=== PATIENT | male | born 1950 | race Caucasian/White ===

== ENCOUNTER 2019-12-05 16:51 | IRF | payer MEDICARE, SELFPAY ==
--- NOTE | ~2019-12-05 | US_ITS ---
EXAMINATION: US venous doppler LE RT EXAM DATE: 12/08/2019 11:03 INDICATION: Right hip fracture, right leg pain. TECHNIQUE: Multiple grayscale, color flow and Doppler images of the right lower extremity deep venous system were obtained and reviewed. There is no prior study for comparison. FINDINGS: The right common femoral, femoral and profunda veins demonstrate normal color flow, respira tory variation, augmentation and compressibility. Compressibility, color flow confirmed within the r ight popliteal, posterior tibial, peroneal, and greater saphenous veins. IMPRESSION: 1. No right lower extremity deep venous thrombosis. Reviewed, dictated and finalized at location A.
[2019-12-05 16:50] VITALS: BP 158/55; PULSE 63; RESP 18; TEMP 37.2; O2SAT 99; BMI 26.3
--- NOTE | 2019-12-05 18:16 | ADMGEN ---
This patient, Elliot Shipman, was admitted to [facility] Room 220-01. Patient/family oriented to hospital policies and general routines including ID bracelet, bed and alarms, visiting hours, pain management, procedures, bathroom and other care routines, personal items, smoking policy, room service/diet, and visiting hours. Valuables list has been completed. Information on how to activate the Rapid Response Team has been discussed. Patient/Family are encouraged to report perceived risks to care and to ask questions if they do not understand what they are told or what they should do.
[2019-12-05 22:00] VITALS: BP 125/54; PULSE 82; RESP 18; TEMP 36.2; O2SAT 97
[2019-12-06 04:52] LABS: Basophils Percent Auto 0.5 % (0.2-1.2); Eosinophils Absolute Auto 0.3 K/mm3 (0-0.3); Eosinophils Percent Auto 4.1 % (0-4.4); Hematocrit 37.5 % (42.0-52.0); Hemoglobin 12.4 g/dL (14.0-18.0); Immature Granulocyte Absolute 0.15 K/mm3 (0.00-0.031); Lymphocytes Absolute Auto 1.02 K/mm3 (0.9-3.2); Lymphocytes Percent Auto 13.8 % (18.3-44.2); Mean Corpuscular HGB Conc 33.1 g/dl (32-36); Mean Corpuscular Hemoglobin 30.4 pg (26-34); Mean Corpuscular Volume 91.9 fl (80-100); Mean Platelet Volume 9.6 fl (7.4-10.4); Monocytes Absolute Auto 1.4 K/mm3 (0.1-0.6); Monocytes Percent Auto 18.6 % (2.6-8.5); Neutrophils Absolute Auto 4.5 K/mm3 (1.3-6.7); Platelet Count Result 250 k/mm3 (150-375); Red Blood Count 4.08 M/mm3 (4.6-6.20); Red Cell Distribution Width 15.5 % (11.5-14.5); White Blood Count 7.4 K/mm3 (4.5-10.0)
[2019-12-06 05:03] LABS: Blood Urea Nitrogen 16 mg/dL (9-20); Calcium 8.8 mg/dL (8.4-10.2); Carbon Dioxide 28 mmol/L (22-30); Chloride 96 mmol/L (98-107); Estimated CRCL calculation 92 ml/min; Estimated Glomerular Filt Rate > 60; Glucose 98 mg/dL (75-110); Potassium 4.1 mmol/L (3.4-5.0); Sodium 131 mmol/L (137-145)
[2019-12-06 06:00] VITALS: BP 180/62; PULSE 75; RESP 16; TEMP 36.6; O2SAT 100
[2019-12-06] MEDS: LEVOTHYROXINE SODIUM 50 MCG TABLET BY MOUTH (06:00)
--- NOTE | 2019-12-06 07:45 | WPDREHABHP ---
H&P: HPI History of Present Illness Chief complaint: Right hip fracture Narrative: Elliot Shipman is a 69 year old male HISTORY OF PRESENT ILLNESS: The patient's primary rehab impairment category is orthopedic-lower extremity fracture The etiologic diagnosis is right subtrochanteric femur fracture with posterior displacement. I saw this patient [id number] on December 06, 2019 at 7:45 a.m. The patient is a 69-year-old right-handed white male with a past medical history of frequent falls, syncope, arthritis, hypertension and thyroid disease who presented to [facility] on November 28, 2019 following a fall. Patient reported he slipped and fell the morning of November 27. The imaging demonstrated an oblique fracture of the proximal diaphysis of the right femur which was comminuted with 4.2 centimeter posterior displacement. Of note the patient was admitted in August of this year after having a syncopal episode and fracturing his right humerus. He received a pacemaker during that hospitalization. In the emergency department on this admission the patient became a Ashen white and experience bradycardia into 40s and hypotension. The patient received atropine and IV fluids. Cardiology was consulted. His pacemaker was interrogated and is lower rate had been set to 45 and then this was increased to 60. Orthopedic surgery was consulted for the femur fracture and he underwent an intramedullary nailing on November 29, [address] Magaña. He has partial weight-bearing at 50% to the right lower extremity. Postoperatively he had became hypotensive again with the systolic 59 and diastolic 32 he also experienced acute postoperative pain acute blood-loss anemia requiring transfusion of 6 units of packed RBCs, hyponatremia, hypertension and hypertension. Acute blood-loss anemia was worked up with CT of the right lower extremity does revealed inflammation versus edema versus hematoma. His pain is currently being controlled with oral and just 6 he is hemodynamically stable electrolytes have been normal. And patient is normotensive now urology was consulted for scrotal edema and right lower extremity edema scrotal ultrasound was performed. Urology recommended scrotal elevation and ambulation and felt that the edema was related to the trauma of the accident and surgery. The patient will require lab monitoring and adjustments medications at necessary he was supposed to have been discharged on Lovenox for DVT prophylaxis however he comes to us with the aspirin 325 milligram daily. The patient has not traveled outside the [place] or had contact with someone who is ill that has traveled outside the [place] in the past 21 days. The patient has not traveled to an area of the [place] that is experiencing no transmission of the Coronavirus and has not had close personal contact with anyone that has. Patient is not experiencing a fever or lower speech or illness symptoms. Therapy was initiated at the acute care facility and the patient transferred to us from [facility] on December 05, 2019 on FALLS OR SURGERIES: The patient has had major surgeries in the 100 days prior to admission. They had no falls in the past year. They had falls with injury in the past year. PAST MEDICAL HISTORY: arthritis C3 fracture, pubic rami fractures, thyroid disease, frequent falls, hypertension, right dislocated shoulder followed by the shoulder surgery for which he has been sling and was to start the therapy however his right shoulder movements are quite limited, pacemaker implantation, rheumatic fever, allergies and syncope Patient also mentioned that he has some tingling and numbness in his legs for past 6 years for which he saw Dr. Espinosa and was on gabapentin however because of really no pain and no benefit from the medication and in fact affecting his memory he has discontinue the gabapentin but is not any distress due to peripheral neuropathy PAST SURGICAL HISTORY:
[2019-12-06 07:58] VITALS: PULSE 75
[2019-12-06] MEDS: ASPIRIN 325 MG TABLET PO (07:58)
[2019-12-06] MEDS: lisinopriL 10 MG TABLET PO (07:58)
[2019-12-06] MEDS: FERROUS SULFATE 324 MG TABLET PO (07:58)
[2019-12-06] MEDS: METOPROLOL SUCCINATE EXT REL 50 MG TABCR PO (07:58)
[2019-12-06] MEDS: THERAPEUTIC MULTIVITAMINS/MINERALS TAB (*BKC) 1 TABLET PO (07:59)
[2019-12-06 12:52] VITALS: BMI 26.3
--- NOTE | 2019-12-06 13:29 | PCNSR ---
On 12/06/19, the student, Wilder Maradiaga, provided care and [facility]. I have reviewed the student's documentation and agree with the findings.
[2019-12-06 14:00] VITALS: BP 136/64; PULSE 80; RESP 18; TEMP 36.6; O2SAT 97
--- NOTE | 2019-12-06 15:32 | RPD ---
INDIVIDUALIZED PLAN OF CARE FOR Elliot Shipman Brief Synthesis of Pre-Admission Screen, Post-Admission Evaluation and Therapy Evaluations: The patient presents to rehab with a right subtrochanteric femur fracture with posterior displacement status post intramedullary nailing. Comorbidities include symptomatic bradycardia, leukocytosis, acute blood loss anemia requiring transfusion, hypotension, hyponatremia, hypertension, hypothyroidism, acute postoperative pain, s/p fall. The patient?s needs will be best met in an intensive program vs. at a lower level of care. The patient requires physician services for medical oversight, management of postop complications in setting of present comorbidities, and pain management. The patient requires nursing services for DVT prophylactics, infection protection, medication management and education, pressure relief, and wound care. Deficits include:ADLs, Balance, Endurance, Family Training/Education, Mobility, Pain Management, ROM, Safety, Strength, and Transfers Tile Conduit Layer/Case Management for: Discharge Planning and Patient/Family Counseling Physical Therapy: 5 days per week for 90 minutes. Treatments may include: Therapeutic Exercise, Gait Training, Neuromuscular Re-education, Transfer Training, Community Reintegration, Bed Mobility, Patient/Family Education, Wheelchair Mobility Group Therapy/Concurrent Therapy Rationales: -Improve attention span during functional activities in a distracted environment. -Enhance problem solving and/or adequate judgment skills during functional activities in a distracted environment. -Promote increased safety awareness in a distracted environment to reduce fall risk with functional tasks, transfers, and ambulation to allow a more safe, self-sufficient return to the home environment. -Improve dynamic balance skills to promote safety and independence with functional activities in a distracted environment for maximum gain. Occupational Therapy: 5 days per week for 90 minutes. Treatments may include: Therapeutic Exercise, Therapeutic Activity, Cognitive Training, Self-Care Transfer Training, Community Reintegration, Home Management, Patient/Family Education, Wheelchair Mobility Training, Energy Conservation Training Group Therapy/Concurrent Therapy Rationales: -Allow therapist to observe and teach generalization and carry-over of skills learned in individual therapy. -Enhance problem solving and sequencing skills during therapeutic activities in a distracted environment. -Promote increased safety awareness in a realistic setting to reduce fall risk with functional tasks due to visual and verbal distractions. -Increase functional level with ADLs, ADL transfers and use of adaptive equipment through therapeutic activities with others while promoting safety to allow a more safe, self-sufficient return home. Medical Prognosis: Good Anticipated Length of Stay: 12 days Rehab Goals: Eating Goal: 06-Independent Oral Hygiene Goal: 06-Independent Toileting Hygiene Goal: 06-Independent Shower/Bathe Self Goal: 06-Independent Upper Body Dressing Goal: 06-Independent Lower Body Dressing Goal: 06-Independent Putting On/Taking Off Footwear Goal: 06-Independent Rolling Left and Right Goal: 06-Independent Sit to Lying Goal: 06-Independent Lying to Sitting on Side of Bed Goal: 06-Independent Sit to Stand Goal: 06-Independent Chair/Rjf-wu-[id number] Transfer Goal: 06-Independent Toilet Transfer Goal: 06-Independent Car Transfer Goal: 06-Independent Walk 10' Goal: 06-Independent Walk 50' with Two Turns Goal: 06-Independent Walk 150' Goal: 06-Independent Walk 10' on Uneven Surface Goal: 06-Independent 1 Step (Curb) Goal: 06-Independent 4 Steps Goal: 06-Independent 12 Steps Goal Score: 06-Independent Picking Up Object Goal: 06-Independent Wheel 50' with Two Turns Score: 06-Independent Wheel 150' Goal: 09-Not Applicable Anticipated discharge destination: Home
[2019-12-06 22:00] VITALS: BP 139/48; PULSE 69; RESP 18; TEMP 36.6; O2SAT 99
[2019-12-07 05:54] VITALS: BP 147/60; PULSE 60; RESP 18; TEMP 36.9; O2SAT 99
[2019-12-07] MEDS: LEVOTHYROXINE SODIUM 50 MCG TABLET BY MOUTH (06:17)
[2019-12-07 08:40] VITALS: PULSE 88; RESP 18; O2SAT 98
[2019-12-07] MEDS: lisinopriL 10 MG TABLET PO (10:35)
[2019-12-07 10:36] VITALS: PULSE 62
[2019-12-07] MEDS: METOPROLOL SUCCINATE EXT REL 50 MG TABCR PO (10:36)
[2019-12-07] MEDS: ASPIRIN 325 MG TABLET PO (10:36)
[2019-12-07] MEDS: FERROUS SULFATE 324 MG TABLET PO (10:36)
[2019-12-07] MEDS: THERAPEUTIC MULTIVITAMINS/MINERALS TAB (*BKC) 1 TABLET PO (10:38)
--- NOTE | 2019-12-07 13:43 | WPDNEURORHBP ---
Subjective Date/time seen: 12/07/19 13:43 Interval history: this 69-year-old with underlying peripheral neuropathy is here post surgery for a right hip fracture he also has had vasovagal episode which have been evaluated at the referring hospital and seems like he is having postural hypotension and syncopal episodes in spite of having had the pacemaker implanted which is functioning well as best I could determine the patient denies any headache nausea vomiting chest pain shortness of breath fever chills sore throat and making progress in the rehab however of course he has questions why does he blacked out or falls down when he stands up quickly Review of Systems Review of Systems: All systems reviewed & are unremarkable except as noted in HPI and below Functional Status Ambulation Ability Ability to Ambulate 10 Feet: Minimum Assistance X 1 Ability to Ambulate 50 Feet With 2 Turns: Minimum Assistance X 1 Ambulation Assistive Devices: Walker, Standard Exam Const: General: comfortable and no acute distress HENMT: General nose exam: Normal nares present Mouth: Yes moist mucous membranes Eyes: General: appearance normal, both eyes and all related structures Neck: Neck: supple and no JVD Resp: Effort & Inspection: normal respiratory effort Auscultation: clear to auscultation bilaterally Cardio: Rate: regular rate Rhythm: regular rhythm Other: pacemaker paced rhythm GI: GI Palp: Yes Soft to palpation Auscultation: normal bowel sounds Skin: General skin exam: normal color and no rashes or lesions noted Neuro: Other: patient is awake alert well oriented time place and person has normal speech and language function does have evidence of peripheral neuropathy primarily affecting the lower extremities and of course limitation of from the recent surgery on his hip Extrem: Other: the incision is clean and healthy Psych: Mental Status: mental status grossly normal Objective Data Vital Signs Vital Signs: Vital Signs - 24 hr 12/06/19 14:00 12/06/19 22:00 12/07/19 05:54 Temperature 36.6 C 36.6 C 36.9 C Pulse Rate 80 69 60 Respiratory Rate 18 18 18 Blood Pressure 136/64 139/48 L 147/60 H Pulse Oximetry 97 99 99 12/07/19 10:36 Temperature Pulse Rate 62 Respiratory Rate Blood Pressure Pulse Oximetry Intake/Output Intake/Output: Intake & Output 12/04/19 12/05/19 12/06/19 12/07/19 23:59 23:59 23:59 23:59 Intake Total 240 480 240 Balance 240 480 240 Meds/Results Medications: Active Medications Generic Name Dose Route Start Last Admin Trade Name Freq PRN Reason Stop Dose Admin Hydrocodone Bitart/Acetaminophen 1 tab 12/05/19 18:09 12/07/19 11:50 [place] 5-325 Mg PO 1 tab Q4H PRN Administration Pain (Scale Score 7-10) Aspirin 325 mg 12/06/19 09:00 12/07/19 10:36 Aspirin PO 325 mg DAILY [facility] Administration Cyanocobalamin 250 mcg 12/08/19 09:00 Vitamin B-12 Tab PO QAM [facility] Ferrous Sulfate 324 mg 12/06/19 09:00 12/07/19 10:36 Ferrous Sulfate PO 324 mg DAILY [facility] Administration Levothyroxine Sodium 50 mcg 12/06/19 06:30 12/07/19 06:17 Synthroid BY MOUTH 50 mcg DAILY@0630 [facility] Administration Lisinopril 10 mg 12/06/19 09:00 12/07/19 10:35 Prinivil PO 10 mg DAILY [facility] Administration Loratadine 10 mg 12/05/19 18:09 Claritin PO DAILY PRN Allergy Symptoms Metoprolol Succinate 50 mg 12/06/19 09:00 12/07/19 10:36 Toprol Xl PO 50 mg DAILY [facility] Administration Multivitamins/Calcium 1 tablet 12/06/19 09:00 12/07/19 10:38 Therapeutic Multivitamins/Minerals PO 1 tablet DAILY [facility] Administration Nonformulary 0 each 12/06/19 09:00 Nutritional XX 01/05/20 09:01 Supplement (Krill DAILY [facility] Oil) Vitamin B Complex/Folic Acid 1 cap 12/08/19 09:00 Nephrocaps Softgel PO QAM [facility] Progress Note: A&P Assessment and Plan (1) Syncopal episodes: Code(s): R55 - Syncope and c
[2019-12-07 14:00] VITALS: BP 138/72; PULSE 90; RESP 18; TEMP 36.6; O2SAT 98
[2019-12-07 21:00] VITALS: BP 115/54; PULSE 92; RESP 20; TEMP 36.9; O2SAT 98
[2019-12-08] MEDS: LEVOTHYROXINE SODIUM 50 MCG TABLET BY MOUTH (05:35)
[2019-12-08 06:00] VITALS: BP 152/69; PULSE 101; RESP 18; TEMP 35.9; O2SAT 99
[2019-12-08 08:41] VITALS: PULSE 97
[2019-12-08] MEDS: METOPROLOL SUCCINATE EXT REL 50 MG TABCR PO (08:41)
[2019-12-08] MEDS: THERAPEUTIC MULTIVITAMINS/MINERALS TAB (*BKC) 1 TABLET PO (08:41)
[2019-12-08] MEDS: lisinopriL 10 MG TABLET PO (08:41)
[2019-12-08] MEDS: ASPIRIN 325 MG TABLET PO (08:42)
[2019-12-08] MEDS: FERROUS SULFATE 324 MG TABLET PO (08:42)
[2019-12-08 13:40] VITALS: PULSE 96; RESP 18; O2SAT 98
[2019-12-08 14:00] VITALS: BP 132/54; PULSE 69; RESP 18; TEMP 36.4; O2SAT 100
[2019-12-08] MEDS: VITAMIN B CMPLX/VIT C/FOLIC AC 1 CAPSULE 1 CAP PO (14:53)
[2019-12-08] MEDS: CYANOCOBALAMIN 250 MCG TABLET PO (14:53)
[2019-12-08 20:00] VITALS: PULSE 69; RESP 18; O2SAT 100
[2019-12-08 22:00] VITALS: BP 157/62; PULSE 74; RESP 18; TEMP 36.4; O2SAT 100
[2019-12-09 06:00] VITALS: BP 168/76; PULSE 100; RESP 18; TEMP 36.7; O2SAT 100
[2019-12-09] MEDS: LEVOTHYROXINE SODIUM 50 MCG TABLET BY MOUTH (06:40)
[2019-12-09 07:53] VITALS: PULSE 100
[2019-12-09] MEDS: VITAMIN B CMPLX/VIT C/FOLIC AC 1 CAPSULE 1 CAP PO (07:53)
[2019-12-09] MEDS: ASPIRIN 325 MG TABLET PO (07:53)
[2019-12-09] MEDS: METOPROLOL SUCCINATE EXT REL 50 MG TABCR PO (07:53)
[2019-12-09] MEDS: CYANOCOBALAMIN 250 MCG TABLET PO (07:53)
[2019-12-09] MEDS: THERAPEUTIC MULTIVITAMINS/MINERALS TAB (*BKC) 1 TABLET PO (07:54)
[2019-12-09] MEDS: lisinopriL 10 MG TABLET PO (07:54)
[2019-12-09] MEDS: FERROUS SULFATE 324 MG TABLET PO (07:54)
--- NOTE | 2019-12-09 12:03 | WPDNEURORHBP ---
Subjective Date/time seen: 12/09/19 12:03 Interval history: this 69-year-old is here because of the right hip fracture and surgery performed. He understands the nature of the syncope and have readdressed that that he has to take the things in a slow motion no overall change in his neurological status no syncopal episodes no headache nausea vomiting chest pain or shortness of breath is working with therapy for his right hip fracture with the limitations limitations placed on him Review of Systems Review of Systems: All systems reviewed & are unremarkable except as noted in HPI and below Functional Status Ambulation Ability Ability to Ambulate 10 Feet: Contact Guard Ability to Ambulate 50 Feet With 2 Turns: Contact Guard Ambulation Assistive Devices: Walker, Standard Exam Const: General: comfortable and no acute distress HENMT: General nose exam: Normal nares present Mouth: Yes moist mucous membranes Eyes: General: appearance normal, both eyes and all related structures Neck: Neck: supple and no JVD Resp: Effort & Inspection: normal respiratory effort Auscultation: clear to auscultation bilaterally Cardio: Rate: regular rate Rhythm: regular rhythm GI: GI Palp: Yes Soft to palpation Auscultation: normal bowel sounds Skin: General skin exam: normal color and no rashes or lesions noted Neuro: Other: patient is awake and alert well oriented has normal speech and language functions normal cranial examination limitations related to his right hip fracture and the weight-bearing status Extrem: Other: the incision from the right hip surgeries clean Psych: Mental Status: mental status grossly normal Objective Data Vital Signs Vital Signs: Vital Signs - 24 hr 12/08/19 13:40 12/08/19 14:00 12/08/19 20:00 Temperature 36.4 C Pulse Rate 96 69 69 Respiratory Rate 18 18 18 Blood Pressure 132/54 L Pulse Oximetry 98 100 100 12/08/19 22:00 12/09/19 06:00 12/09/19 07:53 Temperature 36.4 C 36.7 C Pulse Rate 74 100 100 Respiratory Rate 18 18 Blood Pressure 157/62 H 168/76 H Pulse Oximetry 100 100 Intake/Output Intake/Output: Intake & Output 12/06/19 12/07/19 12/08/19 12/09/19 23:59 23:59 23:59 23:59 Intake Total 480 480 800 240 Balance 480 480 800 240 Meds/Results Medications: Active Medications Generic Name Dose Route Start Last Admin Trade Name Freq PRN Reason Stop Dose Admin Hydrocodone Bitart/Acetaminophen 1 tab 12/05/19 18:09 12/09/19 07:52 [place] 5-325 Mg PO 1 tab Q4H PRN Administration Pain (Scale Score 7-10) Aspirin 325 mg 12/06/19 09:00 12/09/19 07:53 Aspirin PO 325 mg DAILY [facility] Administration Cyanocobalamin 250 mcg 12/08/19 09:00 12/09/19 07:53 Vitamin B-12 Tab PO 250 mcg QAM [facility] Administration Ferrous Sulfate 324 mg 12/06/19 09:00 12/09/19 07:54 Ferrous Sulfate PO 324 mg DAILY [facility] Administration Levothyroxine Sodium 50 mcg 12/06/19 06:30 12/09/19 06:40 Synthroid BY MOUTH 50 mcg DAILY@0630 [facility] Administration Lisinopril 10 mg 12/06/19 09:00 12/09/19 07:54 Prinivil PO 10 mg DAILY [facility] Administration Loratadine 10 mg 12/05/19 18:09 Claritin PO DAILY PRN Allergy Symptoms Metoprolol Succinate 50 mg 12/06/19 09:00 12/09/19 07:53 Toprol Xl PO 50 mg DAILY [facility] Administration Multivitamins/Calcium 1 tablet 12/06/19 09:00 12/09/19 07:54 Therapeutic Multivitamins/Minerals PO 1 tablet DAILY [facility] Administration Nonformulary 0 each 12/06/19 09:00 Nutritional XX 01/05/20 09:01 Supplement (Krill DAILY [facility] Oil) Vitamin B Complex/Folic Acid 1 cap 12/08/19 09:00 12/09/19 07:53 Nephrocaps Softgel PO 1 cap QAM [facility] Administration Zinc Acetate/Diphenhydramine 1 applic 12/07/19 16:54 Benadryl 1% Cream TOPICAL QID PRN Itching Radiology Results: ITS Impressions Venous Doppler Study 12/08/19 11:07 IMPRESSION: 1. No right lower extremity
[2019-12-09 14:00] VITALS: BP 129/43; PULSE 63; RESP 18; TEMP 36.5; O2SAT 100
[2019-12-09 22:00] VITALS: BP 150/55; PULSE 84; RESP 17; TEMP 36.7; O2SAT 100
[2019-12-10 06:00] VITALS: BP 146/64; PULSE 95; RESP 18; TEMP 36.9; O2SAT 99
[2019-12-10] MEDS: LEVOTHYROXINE SODIUM 50 MCG TABLET BY MOUTH (06:05)
[2019-12-10] MEDS: ASPIRIN 325 MG TABLET PO (08:51)
[2019-12-10] MEDS: CYANOCOBALAMIN 250 MCG TABLET PO (08:51)
[2019-12-10 08:52] VITALS: PULSE 95
[2019-12-10] MEDS: METOPROLOL SUCCINATE EXT REL 50 MG TABCR PO (08:52)
[2019-12-10] MEDS: lisinopriL 10 MG TABLET PO (08:52)
[2019-12-10] MEDS: THERAPEUTIC MULTIVITAMINS/MINERALS TAB (*BKC) 1 TABLET PO (08:52)
[2019-12-10] MEDS: FERROUS SULFATE 324 MG TABLET PO (08:52)
[2019-12-10] MEDS: VITAMIN B CMPLX/VIT C/FOLIC AC 1 CAPSULE 1 CAP PO (08:52)
[2019-12-10 14:00] VITALS: BP 95/57; PULSE 108; RESP 20; TEMP 37.2; O2SAT 97
--- NOTE | 2019-12-10 16:31 | WPDNEURORHBP ---
Subjective Date/time seen: 12/10/19 16:31 Interval history: this 69-year-old is here who after having a surgery with right hip fracture along with positional vertigo related to underlying peripheral neuropathy is doing fairly well denies any headache nausea vomiting chest pain shortness of breath fever chills sore throat Review of Systems Review of Systems: All systems reviewed & are unremarkable except as noted in HPI and below Functional Status Ambulation Ability Ability to Ambulate 10 Feet: Contact Guard Ability to Ambulate 50 Feet With 2 Turns: Contact Guard Ability to Ambulate 150 Feet: Contact Guard Ambulation Assistive Devices: Walker, Standard Exam Const: General: comfortable and no acute distress HENMT: General nose exam: Normal nares present Mouth: Yes moist mucous membranes Eyes: General: appearance normal, both eyes and all related structures Neck: Neck: supple and no JVD Resp: Effort & Inspection: normal respiratory effort Auscultation: clear to auscultation bilaterally Cardio: Rate: regular rate Rhythm: regular rhythm GI: GI Palp: Yes Soft to palpation Auscultation: normal bowel sounds Skin: General skin exam: normal color and no rashes or lesions noted Neuro: Other: patient is awake alert and well oriented to time place person has normal speech and language function normal cranial examination restriction in his ability to walk is due to the surgery on his right hip Extrem: General: normal to inspection Psych: Mental Status: mental status grossly normal Objective Data Vital Signs Vital Signs: Vital Signs - 24 hr 12/10/19 22:00 12/11/19 06:00 12/11/19 08:40 Temperature 36.9 C 36.8 C Pulse Rate 99 101 H 101 H Respiratory Rate 17 18 Blood Pressure 142/63 H 144/64 H Pulse Oximetry 100 98 12/11/19 14:00 Temperature 36.2 C L Pulse Rate 60 Respiratory Rate 18 Blood Pressure 128/43 L Pulse Oximetry 99 Intake/Output Intake/Output: Intake & Output 12/08/19 12/09/19 12/10/19 12/11/19 23:59 23:59 23:59 23:59 Intake Total 800 720 720 480 Balance 800 720 720 480 Meds/Results Medications: Active Medications Generic Name Dose Route Start Last Admin Trade Name Freq PRN Reason Stop Dose Admin Hydrocodone Bitart/Acetaminophen 1 tab 12/05/19 18:09 12/11/19 15:16 [place] 5-325 Mg PO 1 tab Q4H PRN Administration Pain (Scale Score 7-10) Aspirin 325 mg 12/06/19 09:00 12/11/19 08:40 Aspirin PO 325 mg DAILY [facility] Administration Cyanocobalamin 250 mcg 12/08/19 09:00 12/11/19 08:40 Vitamin B-12 Tab PO 250 mcg QAM [facility] Administration Ferrous Sulfate 324 mg 12/06/19 09:00 12/11/19 08:40 Ferrous Sulfate PO 324 mg DAILY [facility] Administration Levothyroxine Sodium 50 mcg 12/06/19 06:30 12/11/19 05:48 Synthroid BY MOUTH 50 mcg DAILY@0630 [facility] Administration Lisinopril 10 mg 12/06/19 09:00 12/11/19 08:40 Prinivil PO 10 mg DAILY [facility] Administration Loratadine 10 mg 12/05/19 18:09 Claritin PO DAILY PRN Allergy Symptoms Metoprolol Succinate 50 mg 12/06/19 09:00 12/11/19 08:40 Toprol Xl PO 50 mg DAILY [facility] Administration Multivitamins/Calcium 1 tablet 12/06/19 09:00 12/11/19 08:41 Therapeutic Multivitamins/Minerals PO 1 tablet DAILY [facility] Administration Nonformulary 0 each 12/06/19 09:00 Nutritional XX 01/05/20 09:01 Supplement (Krill DAILY [facility] Oil) Vitamin B Complex/Folic Acid 1 cap 12/08/19 09:00 12/11/19 08:41 Nephrocaps Softgel PO 1 cap QAM [facility] Administration Zinc Acetate/Diphenhydramine 1 applic 12/07/19 16:54 Benadryl 1% Cream TOPICAL QID PRN Itching Radiology Results: ITS Impressions Venous Doppler Study 12/08/19 11:07 IMPRESSION: 1. No right lower extremity deep venous thrombosis. Progress Note: A&P Assessment and Plan (1) Alcoholism: Code(s): F10.20 - Alcohol dependence, uncomplicated Status: Acu
[2019-12-10 22:00] VITALS: BP 142/63; PULSE 99; RESP 17; TEMP 36.9; O2SAT 100
[2019-12-11] MEDS: LEVOTHYROXINE SODIUM 50 MCG TABLET BY MOUTH (05:48)
[2019-12-11 06:00] VITALS: BP 144/64; PULSE 101; RESP 18; TEMP 36.8; O2SAT 98
[2019-12-11 08:40] VITALS: PULSE 101
[2019-12-11] MEDS: ASPIRIN 325 MG TABLET PO (08:40)
[2019-12-11] MEDS: CYANOCOBALAMIN 250 MCG TABLET PO (08:40)
[2019-12-11] MEDS: FERROUS SULFATE 324 MG TABLET PO (08:40)
[2019-12-11] MEDS: METOPROLOL SUCCINATE EXT REL 50 MG TABCR PO (08:40)
[2019-12-11] MEDS: lisinopriL 10 MG TABLET PO (08:40)
[2019-12-11] MEDS: VITAMIN B CMPLX/VIT C/FOLIC AC 1 CAPSULE 1 CAP PO (08:41)
[2019-12-11] MEDS: THERAPEUTIC MULTIVITAMINS/MINERALS TAB (*BKC) 1 TABLET PO (08:41)
[2019-12-11 14:00] VITALS: BP 128/43; PULSE 60; RESP 18; TEMP 36.2; O2SAT 99
--- NOTE | 2019-12-11 18:25 | WPDNEURORHBP ---
Subjective Date/time seen: 12/11/19 18:25 Interval history: this 69-year-old is here post surgery of right hip fracture no new issues or complaints no headache nausea vomiting chest pain or shortness of breath Review of Systems Review of Systems: All systems reviewed & are unremarkable except as noted in HPI and below Functional Status Ambulation Ability Ability to Ambulate 10 Feet: Contact Guard Ability to Ambulate 50 Feet With 2 Turns: Contact Guard Ability to Ambulate 150 Feet: Contact Guard Ambulation Assistive Devices: Walker, Standard Exam Const: General: comfortable and no acute distress HENMT: General nose exam: Normal nares present Mouth: Yes moist mucous membranes Eyes: General: appearance normal, both eyes and all related structures Neck: Neck: no JVD Resp: Effort & Inspection: normal respiratory effort Auscultation: clear to auscultation bilaterally Cardio: Rate: regular rate Rhythm: regular rhythm GI: GI Palp: Yes Soft to palpation Auscultation: normal bowel sounds Skin: General skin exam: normal color and no rashes or lesions noted Neuro: Other: patient's neurological examination is continues to improve as for as the syncope or otherwise is concerned his making progress of course with the limitation of the hip surgery Extrem: General: normal to inspection Psych: Mental Status: mental status grossly normal Objective Data Vital Signs Vital Signs: Vital Signs - 24 hr 12/10/19 22:00 12/11/19 06:00 12/11/19 08:40 Temperature 36.9 C 36.8 C Pulse Rate 99 101 H 101 H Respiratory Rate 17 18 Blood Pressure 142/63 H 144/64 H Pulse Oximetry 100 98 12/11/19 14:00 Temperature 36.2 C L Pulse Rate 60 Respiratory Rate 18 Blood Pressure 128/43 L Pulse Oximetry 99 Intake/Output Intake/Output: Intake & Output 12/08/19 12/09/19 12/10/19 12/11/19 23:59 23:59 23:59 23:59 Intake Total 800 720 720 720 Balance 800 720 720 720 Meds/Results Medications: Active Medications Generic Name Dose Route Start Last Admin Trade Name Freq PRN Reason Stop Dose Admin Hydrocodone Bitart/Acetaminophen 1 tab 12/05/19 18:09 12/11/19 15:16 [place] 5-325 Mg PO 1 tab Q4H PRN Administration Pain (Scale Score 7-10) Aspirin 325 mg 12/06/19 09:00 12/11/19 08:40 Aspirin PO 325 mg DAILY [facility] Administration Cyanocobalamin 250 mcg 12/08/19 09:00 12/11/19 08:40 Vitamin B-12 Tab PO 250 mcg QAM [facility] Administration Ferrous Sulfate 324 mg 12/06/19 09:00 12/11/19 08:40 Ferrous Sulfate PO 324 mg DAILY [facility] Administration Levothyroxine Sodium 50 mcg 12/06/19 06:30 12/11/19 05:48 Synthroid BY MOUTH 50 mcg DAILY@0630 [facility] Administration Lisinopril 10 mg 12/06/19 09:00 12/11/19 08:40 Prinivil PO 10 mg DAILY [facility] Administration Loratadine 10 mg 12/05/19 18:09 Claritin PO DAILY PRN Allergy Symptoms Metoprolol Succinate 50 mg 12/06/19 09:00 12/11/19 08:40 Toprol Xl PO 50 mg DAILY [facility] Administration Multivitamins/Calcium 1 tablet 12/06/19 09:00 12/11/19 08:41 Therapeutic Multivitamins/Minerals PO 1 tablet DAILY [facility] Administration Nonformulary 0 each 12/06/19 09:00 Nutritional XX 01/05/20 09:01 Supplement (Krill DAILY [facility] Oil) Vitamin B Complex/Folic Acid 1 cap 12/08/19 09:00 12/11/19 08:41 Nephrocaps Softgel PO 1 cap QAM [facility] Administration Zinc Acetate/Diphenhydramine 1 applic 12/07/19 16:54 Benadryl 1% Cream TOPICAL QID PRN Itching Radiology Results: ITS Impressions Venous Doppler Study 12/08/19 11:07 IMPRESSION: 1. No right lower extremity deep venous thrombosis. Progress Note: A&P Assessment and Plan (1) Alcoholism: Code(s): F10.20 - Alcohol dependence, uncomplicated Status: Acute (2) Syncopal episodes: Code(s): R55 - Syncope and collapse Status: Acute (3) Pacemaker: Code(s): Z95.0 - Presence of cardia
[2019-12-11 21:20] VITALS: BP 133/45; PULSE 60; RESP 18; TEMP 36.6; O2SAT 100
[2019-12-12 05:44] VITALS: BP 162/77; PULSE 99; RESP 18; TEMP 36.6; O2SAT 99
[2019-12-12] MEDS: LEVOTHYROXINE SODIUM 50 MCG TABLET BY MOUTH (05:51)
[2019-12-12 08:32] VITALS: PULSE 99
[2019-12-12] MEDS: CYANOCOBALAMIN 250 MCG TABLET PO (08:32)
[2019-12-12] MEDS: THERAPEUTIC MULTIVITAMINS/MINERALS TAB (*BKC) 1 TABLET PO (08:32)
[2019-12-12] MEDS: VITAMIN B CMPLX/VIT C/FOLIC AC 1 CAPSULE 1 CAP PO (08:32)
[2019-12-12] MEDS: lisinopriL 10 MG TABLET PO (08:32)
[2019-12-12] MEDS: METOPROLOL SUCCINATE EXT REL 50 MG TABCR PO (08:32)
[2019-12-12] MEDS: FERROUS SULFATE 324 MG TABLET PO (08:32)
[2019-12-12] MEDS: ASPIRIN 325 MG TABLET PO (08:32)
--- NOTE | 2019-12-12 10:00 | PCOTNOTE ---
Attempted to see Patient at this time for A.M. OT treatment session. Patient verbalized he is severely dizzy just sitting in bed, he feels like he needs to keep him eyes shut. RN notified and aware, Vitals have been taken and are normal. Patient declined to participate at this time. Will attempt again at a later time.
--- NOTE | 2019-12-12 10:13 | PC.NURSE ---
Around 08:40 c/o lightheadedness and states does not feel he can stand up and do therapy in fear of falling. Denies chest pain, neuro checks negative, VSS with T 98.4, pulse 60 and regular, 99% on RA, BP 134/58, R 18. Did have pain medication earlier and states has never affected him that way. Will continue to monitor. was notified.
[2019-12-12 14:00] VITALS: BP 150/50; PULSE 63; RESP 20; TEMP 36.6; O2SAT 97
[2019-12-12 14:12] VITALS: BP 116/38; PULSE 80; O2SAT 99
--- NOTE | 2019-12-12 15:39 | PCPTNOTE ---
Elliot Jayson Umberto was evaluated for a standard walker on 12/12/2019 by this physical therapist psychiatric technician assistant. The standard walker will resolve patient's mobility limitations and will be used for ADL's within the home. The patient can safely use the standard walker. ?The standard walker will resolve the patient?s mobility deficits, including limited weight bearing through lower extremity, decreased endurance and strength.
[2019-12-12 20:00] VITALS: PULSE 69; RESP 17; O2SAT 97
[2019-12-12 21:59] VITALS: BP 141/50; PULSE 69; RESP 17; TEMP 36.7; O2SAT 97
[2019-12-13 05:05] LABS: Basophils Absolute Auto 0.1 K/mm3 (0.0-0.1); Basophils Percent Auto 0.8 % (0.2-1.2); Eosinophils Absolute Auto 0.3 K/mm3 (0-0.3); Eosinophils Percent Auto 3.5 % (0-4.4); Hematocrit 33.8 % (42.0-52.0); Hemoglobin 10.8 g/dL (14.0-18.0); Immature Granulocyte Absolute 0.05 K/mm3 (0.00-0.031); Immature Granulocyte Percent A 0.7 % (0-0.5); Lymphocytes Absolute Auto 1.17 K/mm3 (0.9-3.2); Lymphocytes Percent Auto 16.5 % (18.3-44.2); Mean Corpuscular Hemoglobin 29.8 pg (26-34); Mean Corpuscular Volume 93.4 fl (80-100); Mean Platelet Volume 8.8 fl (7.4-10.4); Monocytes Absolute Auto 0.8 K/mm3 (0.1-0.6); Monocytes Percent Auto 11.8 % (2.6-8.5); Neutrophils Absolute Auto 4.7 K/mm3 (1.3-6.7); Neutrophils Percent Auto 66.7 % (45.5-73.1); Platelet Count Result 344 k/mm3 (150-375); Red Blood Count 3.62 M/mm3 (4.6-6.20); Red Cell Distribution Width 14.6 % (11.5-14.5); White Blood Count 7.1 K/mm3 (4.5-10.0)
[2019-12-13 05:21] LABS: Anion Gap 9.4 mmol/L (7-16); Blood Urea Nitrogen 15 mg/dL (9-20); Calcium 8.7 mg/dL (8.4-10.2); Carbon Dioxide 29 mmol/L (22-30); Chloride 99 mmol/L (98-107); Estimated CRCL calculation 92 ml/min; Estimated Glomerular Filt Rate > 60; Glucose 96 mg/dL (75-110); Potassium 4.4 mmol/L (3.4-5.0); Sodium 133 mmol/L (137-145)
[2019-12-13 06:00] VITALS: BP 135/51; PULSE 60; RESP 16; TEMP 36.4; O2SAT 100
[2019-12-13] MEDS: LEVOTHYROXINE SODIUM 50 MCG TABLET BY MOUTH (06:52)
[2019-12-13] MEDS: lisinopriL 10 MG TABLET PO (07:55)
[2019-12-13] MEDS: FERROUS SULFATE 324 MG TABLET PO (07:55)
[2019-12-13] MEDS: ASPIRIN 325 MG TABLET PO (07:55)
[2019-12-13] MEDS: CYANOCOBALAMIN 250 MCG TABLET PO (07:55)
[2019-12-13] MEDS: VITAMIN B CMPLX/VIT C/FOLIC AC 1 CAPSULE 1 CAP PO (07:56)
[2019-12-13] MEDS: THERAPEUTIC MULTIVITAMINS/MINERALS TAB (*BKC) 1 TABLET PO (07:56)
[2019-12-13 09:27] VITALS: PULSE 60
[2019-12-13] MEDS: METOPROLOL SUCCINATE EXT REL 25 MG TABCR PO (09:27)
--- NOTE | 2019-12-13 12:16 | PCPTNOTE ---
Cris Webster PTA completed an inpatient rehab wheelchair evaluation on Elliot Shipman on 12/13/2019. The patient is unable to safely and independently ambulate household distances due to their current impairments. Their diagnosis is Right hip fracture and their impairments include decreased strength, decreased endurance, decreased range of motion, decreased balance and lower extremity weakness. Elliot's weight bearing status is weight-bearing as tolerated on the left leg and 50% partial weight bearing through right leg. The patient demonstrates significant functional mobility limitations that impair their ability to participate in mobility-related activities of daily living (MRADLs), including toileting, feeding, dressing, grooming, and bathing in the customary locations in the home. These limitations cannot be sufficiently resolved by the use of an appropriately fitted cane or walker. It is recommended that the patient utilize a wheelchair for functional mobility within the home in order to facilitate optimal safety, independence and participation in all MRADL's and adequately access their home environment on a regular basis. The patient's home provides adequate access between rooms, maneuvering space, and surfaces to accommodate the recommended wheelchair. The use of a wheelchair for functional mobility is strongly recommended and the patient is receptive to using the wheelchair. The use of this wheelchair will significantly improve the patient's ability to participate in MRADLS and the patient will use it on a regular basis in the home. This will facilitate optimal safety, independence, and participation. The patient has demonstrated sufficient physical and mental capabilities needed to safely propel a manual wheelchair that is provided in the home during a typical day. Recommended Wheelchair Frame: [standard Recommended Wheelchair Size: 18x18 patient's anatomical hip with 16 inches Recommended Wheelchair Cushion:standard Wheelchair Leg Recommendations: bilateral swing away leg rests. -Elevating legrests are recommended because the patient has significant edema of the lower extremities that requires an elevating legrest. -Anti-tippers are recommended due to patient demonstrating increased risk for falls. They would benefit from anti-tippers with added safety and stabilization. Cris Darin [employer]RUGATED SHEET MATERIAL SHEETER 12-13-2019 Evaluating Therapist Date I agree with and certify that the above recommendation is medically necessary. Referring Physician Date I agree with and certify that the above recommendation is medically necessary. Referring Physician Date
--- NOTE | 2019-12-13 12:49 | PCDIET ---
Nutrition Follow-Up Complete: Nutrition Diagnosis: Increased protein needs related to wound healing as evidenced by right hip incision. Nutrition Goal: Patient to consume 75% or more of meals. Goal met. Patient consuming 75-100% of meals on regular diet. Reports good appetite and denies c/o or concerns. Regular diet appropriate. Last recorded weight is 76.2 kg. Recommend obtaining new weight. Bowel Motility: Last documented BM on 12/11/19. Labs Reviewed: Hgb (10.8), Hct (33.8), Cr (0.6), Na (133) Meds Noted: [place], Vitamin B12, Ferrous Sulfate, MVI/minerals, Nephrocaps Additional Notes: Edema reportedly improved. Right hip with surgical site but no pressure ulcers reported. Will continue to monitor with same goal. Nutrition Monitoring and Evaluation: Follow up in 7 days.
--- NOTE | 2019-12-13 13:26 | WPDNEURORHBP ---
Subjective Date/time seen: 12/13/19 13:26 Interval history: this 69-year-old is here after having had the surgery for his right hip his lightheadedness has been bothering him and blood pressure has been relatively low but it has gotten better with positions change he is weight-bearing as tolerated doing fairly well in therapy denies any headache nausea vomiting chest pain shortness of breath fever chills sore throat Review of Systems Review of Systems: All systems reviewed & are unremarkable except as noted in HPI and below Functional Status Ambulation Ability Ability to Ambulate 10 Feet: Contact Guard Ability to Ambulate 50 Feet With 2 Turns: Contact Guard Ability to Ambulate 150 Feet: Contact Guard Ambulation Assistive Devices: Walker, Standard Exam Const: General: comfortable and no acute distress HENMT: General nose exam: Normal nares present Mouth: Yes moist mucous membranes Eyes: General: appearance normal, both eyes and all related structures Neck: Neck: supple and no JVD Resp: Effort & Inspection: normal respiratory effort Auscultation: clear to auscultation bilaterally Cardio: Rate: regular rate Rhythm: regular rhythm GI: GI Palp: Yes Soft to palpation Auscultation: normal bowel sounds Skin: General skin exam: normal color and no rashes or lesions noted Neuro: Other: patient awake alert will oriented time plus person is speech and language functions normal cranial exam shows normal his moving therapy quite well weakness is improving the evidence of the peripheral neuropathy remains stable in his lower extremities Extrem: General: normal to inspection Psych: Mental Status: mental status grossly normal Objective Data Vital Signs Vital Signs: Vital Signs - 24 hr 12/12/19 14:00 12/12/19 14:12 12/12/19 20:00 Temperature 36.6 C Pulse Rate 63 80 69 Respiratory Rate 20 17 Blood Pressure 150/50 H 116/38 L Pulse Oximetry 97 99 97 12/12/19 21:59 12/13/19 06:00 12/13/19 09:27 Temperature 36.7 C 36.4 C L Pulse Rate 69 60 60 Respiratory Rate 17 16 Blood Pressure 141/50 H 135/51 L Pulse Oximetry 97 100 Intake/Output Intake/Output: Intake & Output 12/10/19 12/11/19 12/12/19 12/13/19 23:59 23:59 23:59 23:59 Intake Total 720 720 720 480 Balance 720 720 720 480 Meds/Results Medications: Active Medications Generic Name Dose Route Start Last Admin Trade Name Freq PRN Reason Stop Dose Admin Hydrocodone Bitart/Acetaminophen 1 tab 12/05/19 18:09 12/13/19 11:05 [place] 5-325 Mg PO 1 tab Q4H PRN Administration Pain (Scale Score 7-10) Aspirin 325 mg 12/06/19 09:00 12/13/19 07:55 Aspirin PO 325 mg DAILY [facility] Administration Cyanocobalamin 250 mcg 12/08/19 09:00 12/13/19 07:55 Vitamin B-12 Tab PO 250 mcg QAM [facility] Administration Ferrous Sulfate 324 mg 12/06/19 09:00 12/13/19 07:55 Ferrous Sulfate PO 324 mg DAILY [facility] Administration Levothyroxine Sodium 50 mcg 12/06/19 06:30 12/13/19 06:52 Synthroid BY MOUTH 50 mcg DAILY@0630 [facility] Administration Lisinopril 10 mg 12/06/19 09:00 12/13/19 07:55 Prinivil PO 10 mg DAILY [facility] Administration Loratadine 10 mg 12/05/19 18:09 Claritin PO DAILY PRN Allergy Symptoms Metoprolol Succinate 25 mg 12/13/19 09:00 12/13/19 09:27 Toprol Xl PO 25 mg DAILY [facility] Administration Multivitamins/Calcium 1 tablet 12/06/19 09:00 12/13/19 07:56 Therapeutic Multivitamins/Minerals PO 1 tablet DAILY [facility] Administration Nonformulary 0 each 12/06/19 09:00 Nutritional XX 01/05/20 09:01 Supplement (Krill DAILY [facility] Oil) Vitamin B Complex/Folic Acid 1 cap 12/08/19 09:00 12/13/19 07:56 Nephrocaps Softgel PO 1 cap QAM [facility] Administration Zinc Acetate/Diphenhydramine 1 applic 12/07/19 16:54 Benadryl 1% Cream TOPICAL QID PRN Itching Radiology Results: ITS Impressions Venous Doppler Study 12/08/19 11:07 IMPRESSION: 1.
[2019-12-13 14:00] VITALS: BP 145/50; PULSE 100; RESP 20; TEMP 36.8; O2SAT 99
[2019-12-13 20:00] VITALS: PULSE 62; RESP 17; O2SAT 98
[2019-12-13 22:00] VITALS: BP 155/54; PULSE 62; RESP 17; TEMP 36.8; O2SAT 98
[2019-12-14 06:00] VITALS: BP 129/52; PULSE 59; RESP 16; TEMP 36.3; O2SAT 96
[2019-12-14] MEDS: LEVOTHYROXINE SODIUM 50 MCG TABLET BY MOUTH (06:42)
[2019-12-14 08:00] VITALS: PULSE 64; RESP 16; O2SAT 97
[2019-12-14] MEDS: THERAPEUTIC MULTIVITAMINS/MINERALS TAB (*BKC) 1 TABLET PO (08:46)
[2019-12-14] MEDS: ASPIRIN 325 MG TABLET PO (08:46)
[2019-12-14] MEDS: VITAMIN B CMPLX/VIT C/FOLIC AC 1 CAPSULE 1 CAP PO (08:46)
[2019-12-14] MEDS: lisinopriL 10 MG TABLET PO (08:46)
[2019-12-14] MEDS: FERROUS SULFATE 324 MG TABLET PO (08:46)
[2019-12-14 08:47] VITALS: PULSE 64
[2019-12-14] MEDS: METOPROLOL SUCCINATE EXT REL 25 MG TABCR PO (08:47)
[2019-12-14] MEDS: CYANOCOBALAMIN 250 MCG TABLET PO (08:47)
[2019-12-14 14:00] VITALS: BP 143/54; PULSE 60; RESP 16; TEMP 37.2; O2SAT 98
--- NOTE | 2019-12-14 15:27 | WPDNEURORHBP ---
Subjective Date/time seen: 12/14/19 15:27 Interval history: this 69-year-old is here post surgery right hip fracture his pain control is better however is quite reluctant and in fact hesitant to go home by himself which we are agreeable we are working for transfer to a penitentiary facility he denies any headache nausea vomiting chest pain shortness of breath or any syncopal episode Review of Systems Review of Systems: All systems reviewed & are unremarkable except as noted in HPI and below Functional Status Ambulation Ability Ability to Ambulate 10 Feet: Contact Guard Ability to Ambulate 50 Feet With 2 Turns: Contact Guard Ability to Ambulate 150 Feet: Contact Guard Ambulation Assistive Devices: Walker, Standard Transfers Ability Ability to Transfer In/Out of Chair: Standby Assistance Exam Const: General: comfortable and no acute distress HENMT: General nose exam: Normal nares present Mouth: Yes moist mucous membranes Eyes: General: appearance normal, both eyes and all related structures Neck: Neck: supple and no JVD Resp: Effort & Inspection: normal respiratory effort Auscultation: clear to auscultation bilaterally Cardio: Rate: regular rate Rhythm: regular rhythm GI: GI Palp: Yes Soft to palpation Auscultation: normal bowel sounds Skin: General skin exam: normal color and no rashes or lesions noted Neuro: Other: patient is awake and alert well oriented time place and person has normal speech is function normal cranial examination and improving overall Extrem: General: normal to inspection Psych: Mental Status: mental status grossly normal Objective Data Vital Signs Vital Signs: Vital Signs - 24 hr 12/13/19 20:00 12/13/19 22:00 12/14/19 06:00 Temperature 36.8 C 36.3 C L Pulse Rate 62 62 59 L Respiratory Rate 17 17 16 Blood Pressure 155/54 H 129/52 L Pulse Oximetry 98 98 96 12/14/19 08:00 12/14/19 08:47 12/14/19 14:00 Temperature 37.2 C Pulse Rate 64 64 60 Respiratory Rate 16 16 Blood Pressure 143/54 H Pulse Oximetry 97 98 Intake/Output Intake/Output: Intake & Output 12/11/19 12/12/19 12/13/19 12/14/19 23:59 23:59 23:59 23:59 Intake Total 720 720 720 480 Balance 720 720 720 480 Meds/Results Medications: Active Medications Generic Name Dose Route Start Last Admin Trade Name Freq PRN Reason Stop Dose Admin Hydrocodone Bitart/Acetaminophen 1 tab 12/05/19 18:09 12/14/19 15:15 [place] 5-325 Mg PO 1 tab Q4H PRN Administration Pain (Scale Score 7-10) Aspirin 325 mg 12/06/19 09:00 12/14/19 08:46 Aspirin PO 325 mg DAILY [facility] Administration Cyanocobalamin 250 mcg 12/08/19 09:00 12/14/19 08:47 Vitamin B-12 Tab PO 250 mcg QAM [facility] Administration Ferrous Sulfate 324 mg 12/06/19 09:00 12/14/19 08:46 Ferrous Sulfate PO 324 mg DAILY [facility] Administration Levothyroxine Sodium 50 mcg 12/06/19 06:30 12/14/19 06:42 Synthroid BY MOUTH 50 mcg DAILY@0630 [facility] Administration Lisinopril 10 mg 12/06/19 09:00 12/14/19 08:46 Prinivil PO 10 mg DAILY [facility] Administration Loratadine 10 mg 12/05/19 18:09 Claritin PO DAILY PRN Allergy Symptoms Metoprolol Succinate 25 mg 12/13/19 09:00 12/14/19 08:47 Toprol Xl PO 25 mg DAILY [facility] Administration Multivitamins/Calcium 1 tablet 12/06/19 09:00 12/14/19 08:46 Therapeutic Multivitamins/Minerals PO 1 tablet DAILY [facility] Administration Nonformulary 0 each 12/06/19 09:00 Nutritional XX 01/05/20 09:01 Supplement (Krill DAILY [facility] Oil) Vitamin B Complex/Folic Acid 1 cap 12/08/19 09:00 12/14/19 08:46 Nephrocaps Softgel PO 1 cap QAM [facility] Administration Zinc Acetate/Diphenhydramine 1 applic 12/07/19 16:54 Benadryl 1% Cream TOPICAL QID PRN Itching Radiology Results: ITS Impressions Venous Doppler Study 12/08/19 11:07 IMPRESSION: 1. No right lower extremity deep venous thrombosis. Progre
[2019-12-14 22:00] VITALS: BP 155/50; PULSE 59; RESP 18; TEMP 36.8; O2SAT 100
[2019-12-15 06:00] VITALS: BP 161/62; PULSE 74; RESP 18; TEMP 36.6; O2SAT 98
[2019-12-15] MEDS: LEVOTHYROXINE SODIUM 50 MCG TABLET BY MOUTH (06:30)
[2019-12-15 07:54] VITALS: PULSE 74
[2019-12-15] MEDS: ASPIRIN 325 MG TABLET PO (07:54)
[2019-12-15] MEDS: lisinopriL 10 MG TABLET PO (07:54)
[2019-12-15] MEDS: METOPROLOL SUCCINATE EXT REL 25 MG TABCR PO (07:54)
[2019-12-15] MEDS: THERAPEUTIC MULTIVITAMINS/MINERALS TAB (*BKC) 1 TABLET PO (07:54)
[2019-12-15] MEDS: CYANOCOBALAMIN 250 MCG TABLET PO (07:54)
[2019-12-15] MEDS: VITAMIN B CMPLX/VIT C/FOLIC AC 1 CAPSULE 1 CAP PO (07:54)
[2019-12-15] MEDS: FERROUS SULFATE 324 MG TABLET PO (07:54)
[2019-12-15 14:00] VITALS: BP 113/48; PULSE 92; RESP 18; TEMP 36.2; O2SAT 98
[2019-12-15 18:04] LABS: SARS-CoV-2 RNA PCR Negative
[2019-12-15 22:00] VITALS: BP 143/51; PULSE 61; RESP 18; TEMP 36.8; O2SAT 100
[2019-12-16] MEDS: LEVOTHYROXINE SODIUM 50 MCG TABLET BY MOUTH (05:40)
[2019-12-16 06:00] VITALS: BP 157/56; PULSE 65; RESP 17; TEMP 36.8; O2SAT 99
[2019-12-16 09:04] VITALS: PULSE 65
[2019-12-16] MEDS: CYANOCOBALAMIN 250 MCG TABLET PO (09:04)
[2019-12-16] MEDS: METOPROLOL SUCCINATE EXT REL 25 MG TABCR PO (09:04)
[2019-12-16] MEDS: FERROUS SULFATE 324 MG TABLET PO (09:04)
[2019-12-16] MEDS: lisinopriL 10 MG TABLET PO (09:04)
[2019-12-16] MEDS: ASPIRIN 325 MG TABLET PO (09:04)
[2019-12-16] MEDS: VITAMIN B CMPLX/VIT C/FOLIC AC 1 CAPSULE 1 CAP PO (09:05)
[2019-12-16] MEDS: THERAPEUTIC MULTIVITAMINS/MINERALS TAB (*BKC) 1 TABLET PO (09:05)
--- NOTE | 2019-12-16 14:13 | WPDNEURORHBP ---
Subjective Date/time seen: 12/16/19 14:13 Interval history: this 69-year-old has been here because of the right hip fracture post surgery is going to be discharged today to care home facility he has achieved over goals and doing fairly well denies any headache nausea vomiting chest pain shortness of breath fever chills sore throat Review of Systems Review of Systems: All systems reviewed & are unremarkable except as noted in HPI and below Functional Status Ambulation Ability Ability to Ambulate 10 Feet: Standby Assistance Ability to Ambulate 50 Feet With 2 Turns: Standby Assistance Ability to Ambulate 150 Feet: Contact Guard Ambulation Assistive Devices: Walker, Standard Transfers Ability Ability to Transfer In/Out of Chair: Independent Exam Const: General: comfortable and no acute distress HENMT: General nose exam: Normal nares present Mouth: Yes moist mucous membranes Eyes: General: appearance normal, both eyes and all related structures Neck: Neck: supple and no JVD Resp: Effort & Inspection: normal respiratory effort Auscultation: clear to auscultation bilaterally Cardio: Rate: regular rate Rhythm: regular rhythm GI: GI Palp: Yes Soft to palpation Auscultation: normal bowel sounds Skin: General skin exam: normal color and no rashes or lesions noted Neuro: Other: patient is awake alert well oriented normal speech and language function normal cranial examination evidence of peripheral neuropathy and also periodic postural hypotension which is quite stable Extrem: Other: the incision from the hip surgeries clean Psych: Mental Status: mental status grossly normal Objective Data Vital Signs Vital Signs: Vital Signs - 24 hr 12/15/19 22:00 12/16/19 06:00 12/16/19 09:04 Temperature 36.8 C 36.8 C Pulse Rate 61 65 65 Respiratory Rate 18 17 Blood Pressure 143/51 H 157/56 H Pulse Oximetry 100 99 Intake/Output Intake/Output: Intake & Output 12/13/19 12/14/19 12/15/19 12/16/19 23:59 23:59 23:59 23:59 Intake Total 720 760 840 480 Balance 720 760 840 480 Meds/Results Medications: Active Medications Generic Name Dose Route Start Last Admin Trade Name Freq PRN Reason Stop Dose Admin Hydrocodone Bitart/Acetaminophen 1 tab 12/05/19 18:09 12/16/19 11:40 [place] 5-325 Mg PO 1 tab Q4H PRN Administration Pain (Scale Score 7-10) Aspirin 325 mg 12/06/19 09:00 12/16/19 09:04 Aspirin PO 325 mg DAILY [facility] Administration Cyanocobalamin 250 mcg 12/08/19 09:00 12/16/19 09:04 Vitamin B-12 Tab PO 250 mcg QAM [facility] Administration Ferrous Sulfate 324 mg 12/06/19 09:00 12/16/19 09:04 Ferrous Sulfate PO 324 mg DAILY [facility] Administration Levothyroxine Sodium 50 mcg 12/06/19 06:30 12/16/19 05:40 Synthroid BY MOUTH 50 mcg DAILY@0630 [facility] Administration Lisinopril 10 mg 12/06/19 09:00 12/16/19 09:04 Prinivil PO 10 mg DAILY [facility] Administration Loratadine 10 mg 12/05/19 18:09 Claritin PO DAILY PRN Allergy Symptoms Metoprolol Succinate 25 mg 12/13/19 09:00 12/16/19 09:04 Toprol Xl PO 25 mg DAILY [facility] Administration Multivitamins/Calcium 1 tablet 12/06/19 09:00 12/16/19 09:05 Therapeutic Multivitamins/Minerals PO 1 tablet DAILY [facility] Administration Nonformulary 0 each 12/06/19 09:00 Nutritional XX 01/05/20 09:01 Supplement (Krill DAILY [facility] Oil) Vitamin B Complex/Folic Acid 1 cap 12/08/19 09:00 12/16/19 09:05 Nephrocaps Softgel PO 1 cap QAM [facility] Administration Zinc Acetate/Diphenhydramine 1 applic 12/07/19 16:54 Benadryl 1% Cream TOPICAL QID PRN Itching Radiology Results: ITS Impressions Venous Doppler Study 12/08/19 11:07 IMPRESSION: 1. No right lower extremity deep venous thrombosis. Labs Labs: Laboratory Results - last 24 hr 12/15/19 07:50 SARS-CoV-2 RNA (RT-PCR) Negative Progress Note: A&P Assessment and Plan (1) Gabriele
--- NOTE | 2019-12-21 11:43 | PM.DS ---
DS: Admitting Diagnosis Admitting Diagnosis Admitting Diagnosis: Displaced subtrochanteric fracture of unspecified femur, initial encounter for closed fracture DS: Discharge Diagnosis Discharge Diagnosis (1) Alcoholism: Code(s): F10.20 - Alcohol dependence, uncomplicated Status: Acute (2) Syncopal episodes: Code(s): R55 - Syncope and collapse Status: Acute (3) Pacemaker: Code(s): Z95.0 - Presence of cardiac pacemaker Status: Acute (4) Peripheral neuropathy: Code(s): G62.9 - Polyneuropathy, unspecified Status: Acute (5) Multiple falls: Code(s): R29.6 - Repeated falls Status: Acute (6) Subtrochanteric fracture of femur: Code(s): S72.23XA - Displaced subtrochanteric fracture of unspecified femur, initial encounter for closed fracture Status: Acute DS: Summary Hospital Course Reason for hospitalization: This 69-year-old was admitted because of multiple issues as mentioned above in the problem list and also in my detailed history and physical examination he received the physical therapy occupational therapy and gait training he was instructed about his ability to get up and move around and risk for falls while he was here he was able to achieve the following independent measures Hospital Course: eating independent, oral hygiene independent, toileting setup, bathing supervision, upper body dressing setup, lower body dressing supervision, footwear independent, rolling in bed independent, sitting to lying setup, lying to sitting set up, sit to stand supervision, chair transfers supervision, toilet transfers set up, car transfers set up, walking 10 feet independent, walking 50 feet with 2 turns supervision, walking 150 feet supervision, walking 10 feet uneven surfaces supervision, carb are step supervision, 4 steps patient was unable to, 12 steps patient was unable to be [place] object independent wheelchair 50 feet independent wheelchair 150 feet independent The patient was discharged to long-term facility no falls were recorded no unusual syncopal episodes were recorded Time Spent with Patient Time attestation: Total time spent providing and/or coordinating discharge services: Exam Const: General: comfortable and no acute distress HENMT: General nose exam: Normal nares present Mouth: Yes dry mucous membranes Eyes: General: appearance normal, both eyes and all related structures Neck: Neck: supple and no JVD Resp: Effort & Inspection: normal respiratory effort Auscultation: clear to auscultation bilaterally Cardio: Rate: regular rate Rhythm: regular rhythm GI: GI Palp: Yes Soft to palpation Auscultation: normal bowel sounds Skin: General skin exam: normal color and no rashes or lesions noted Neuro: Other: patient remained awake and alert well oriented and really did very well in the rehab was able to achieve goal but because of the other circumstances [place] as he was scared because of his underlying peripheral neuropathy and the risk for fall however overall neurological improvement much improved during the time he does have evidence of peripheral neuropathy for over 6 years Extrem: General: normal to inspection Psych: Mental Status: mental status grossly normal Discharge Plan Discharge Attending physician on discharge: Daniel Cruz Discharging Clinician: Daniel Cruz Anticipated Discharge Date/Time: 12/16/19 11:46 Patient Disposition: SNF Activity: no driving and follow weight bearing status Diet: regular Wound Care Instructions: change dressing daily and other - see discharge instructions Discharge Instructions: FOLLOW UP WITH NEUROLOGY IN 3 WEEKS. Daily gauze dressing change to right hip; remove hannah in [address] Magaña. D/C hannah on 12/22/19. Patient Instructions: Aspirin (By mouth), Pain Management (GEN) Stand Alone Forms: General Discharge Information Follow-up
== END 2019-12-16 13:00 | DRG 561 ==
PROVIDERS: Admitting Provider Psychiatry & Neurology Neurology; PCP Family Medicine; Visit Provider Psychiatry & Neurology Neurology
DX: S72.21XD Displaced subtrochanteric fracture of right femur, subsequent encounter for closed fracture with routine healing (principal); G62.9 Polyneuropathy, unspecified; R55 Syncope and collapse; I10 Essential (primary) hypertension; E07.9 Disorder of thyroid, unspecified; F10.20 Alcohol dependence, uncomplicated; I95.81 Postprocedural hypotension; M19.90 Unspecified osteoarthritis, unspecified site; R29.6 Repeated falls; Z96.611 Presence of right artificial shoulder joint; Z95.0 Presence of cardiac pacemaker; Z98.42 Cataract extraction status, left eye; Z98.41 Cataract extraction status, right eye; W19.XXXD Unspecified fall, subsequent encounter; D64.9 Anemia, unspecified
CPT/HCPCS: 36415; 80048; 85025; 87635; 93971; 97110; 97116; 97161; 97166; 97530; 97535; 97542; A9270; C9803; U0003